=== PATIENT | female | born 1995 | race Caucasian/White ===

== ENCOUNTER 2022-07-23 04:59 | Emergency (ER) | payer OTHER ==
[~2022-07-23] VITALS: Ht 149.9 cm; Wt 56.7 kg
[2022-07-23] MEDS ORDERED: PRENATABS FA T1 EACH PO (05:24)
[2022-07-23] MEDS ORDERED: ONDANSETRON ODT4 MG PO (06:55)
== END 2022-07-23 07:38 | disposition home or self-care (01) ==
LOC: ED 04:59
DX: O21.9 Vomiting of pregnancy, unspecified (principal); Z3A.14 14 weeks gestation of pregnancy
CPT/HCPCS: 36415; 80053; 81003; 83735; 85025; 96374; 99284-25; A9270; J2405; J7030

== ENCOUNTER 2023-01-15 23:15 | Inpatient (IN) | payer BC, OTHER ==
[~2023-01-15] VITALS: Ht 149.9 cm; Wt 75.3 kg
--- NOTE | ~2023-01-15 | OR ---
[facility] [address] [place], [place] [address] Draft DATE OF OPERATION: 01/16/2023 SURGEON: Taz Payton DO PREOPERATIVE DIAGNOSES: 1. Intrauterine at 39 weeks gestation. 2. Failure to descend. 3. Persistent occiput posterior position. 4. Non-reassuring heart tracing. 5. Severe anxiety. POSTOPERATIVE DIAGNOSES: 1. Intrauterine at 39 weeks gestation. 2. Failure to descend. 3. Persistent occiput posterior position. 4. Non-reassuring heart tracing. 5. Severe anxiety. PROCEDURE PERFORMED: Primary low transverse delivery. ANESTHESIA: Epidural converted to general anesthetic with postoperative tap block. ORDER MANAGEMENT SPECIALIST: Waqas Kramer MD. ESTIMATED BLOOD LOSS: 600 mL. DRAINS: Milton to gravity. COMPLICATIONS: None. FINDINGS: Delivery of viable female in the direct OP position with no nuchal cord. Meconium-stained fluid. Apgars 3, 6 and 8. weight 3835 g. Normal uterus, tubes, and ovaries. PATIENT NAME: KAMILAH PAINTING OPERATIVE REPORT DATE OF : [birth year] REPORT #: [id number] PHYSICIAN: TAZ PAYTON (HEMANTH) PCP: NO PRIMARY CARE PHYSICIAN REPORT IS CONFIDENTIAL AND NOT TO BE RELEASED WITHOUT AUTHORIZATION [address] [address] Draft INDICATIONS: Ms. Painting is a very pleasant 27-year-old, G1, P0, with IUP in the 39th week gestation who presented in active labor. Artificial rupture of membranes was performed for meconium-stained fluid and epidural was placed. The patient struggled with pain control with epidural in place throughout her labor. The patient was able to progress to 10 cm with reassuring heart tracing. The patient pushed for nearly 2 hours with no descensus noted and persistent occiput posterior positioning noted. Maternal repositioning and rotational maneuvers were unsuccessful. Fetus then develops sustained tachycardia and mom briefly had an elevated temperature of a 101.1 degrees Fahrenheit. Recommended primary low transverse delivery. Risks, benefits, and alternatives were discussed in detail with the patient and family. The patient understands and wishes to proceed with the procedure. PROCEDURE IN DETAIL: The patient was taken to the operating room where a time-out was performed to confirm correct patient and correct procedure. Epidural was bolused. A Milton catheter was reinserted and significant vulvar edema was noted consistent with prolonged 2nd stage of labor and pushing efforts. Ancef 2 g preoperatively and azithromycin 500 mg were administered. ICPs were on and running. The patient was prepped and draped in the supine position with a bump under the right hip. Epidural was evaluated and noted to be inadequate. Decision was made to proceed with a general anesthetic. Once general anesthesia was established, a Pfannenstiel skin incision was made using a surgical scalpel and carried down to the fascia. The fascia was nicked in the midline and fascial incision was extended bilaterally using curved Carrington scissors. Fascia was grasped with Melissa's, elevated, and the underlying rectus muscles dissected off bluntly and sharply. Rectus was divided in the midline and peritoneum was divided bluntly. Lower uterine segment was identified and hysterotomy was performed using a surgical scalpel. Hysterotomy was extended using blunt dissection and meconium stained fluid was noted. Surgeon's hand was placed in the uterine cavity and vertex was flexed and delivered into the abdomen. The remainder of the was delivered with the assistance of fundal pressure. Direct OP positioning was noted with significant molding and caput. The was initially vigorous and cried and the cord was doubly clamped and cut and the handed to the waiting pediatric team for further care. Cord gases were obtained and noted to be normal at the end of the procedure. Cord blood was obtained for routine analysis. The placenta was expressed, intact with a centrally inserted three-vessel cord. The uterine cavity was cleared of any remaining products of conception or clot. Some oozing was noted from the right uterine vessels. Hysterotomy was then repaired using 0 Monocryl with excellent control of all bleeding. Hysterotomy was closed in two layers, the first being a running locked layer and the second being an imbricating layer in the vertical manner. The pelvis was irrigated and found to be hemostatic. Normal uterus, tubes, and ovaries appreciated. The peritoneum was then PATIENT NAME: KAMILAH PAINTING OPERATIVE REPORT DATE OF : [birth year] REPORT #: [id number] PHYSICIAN: TAZ PAYTON (HEMANTH) DO PCP: NO PRIMARY CARE PHYSICIAN REPORT IS CONFIDENTIAL AND NOT TO BE RELEASED WITHOUT AUTHORIZATION [facility] [address], [place] [address] Draft reapproximated using 2-0 Vicryl in a running nonlocked manner. The rectus was noted to be hemostatic and plicated loosely in the midline using three interrupted sutures of 0 Vicryl. ACell powder was applied to the rectus sheath. The fascia was reapproximated using 0 Vicryl in a running nonlocked manner. Subcu was irrigated and made hemostatic with judicious use of Bovie electrocautery. Subcu was reapproximated using 3-0 Vicryl in a running nonlocked manner. Skin was reapproximated using surgical abigail. The uterus was Crede'd for scant amount of blood. The patient remained in the operative room under general anesthetic for tap blocks and was in the nursery recovering with the assist of the pediatric team. Sponge, needle, instrument counts were correct x2 at the end of the procedure. Dr. Kramer was present and participated in all portions of the procedure. DO EDIE Ramos/MILTONL /[id number] Copies: ~ PATIENT NAME: KAMILAH PAINTING OPERATIVE REPORT DATE OF : [birth year] REPORT #: [id number] PHYSICIAN: TAZ PAYTON) PCP: NO PRIMARY CARE PHYSICIAN REPORT IS CONFIDENTIAL AND NOT TO BE RELEASED WITHOUT AUTHORIZATION
[~2023-01-15 23:15] MED LIST: ONDANSETRON ODT4 MG PO; PRENATABS FA T1 EACH PO
[2023-01-16 02:14] VITALS: BP 127/80
--- NOTE | 2023-01-16 08:23 | PR ---
[facility] [address] [place], [place] [address] Signed Progress Notes IP Datetime Report Generated by CPN: 01/16/2023 08:23 PROGRESS NOTES: [id number] Procedures: Artificial ROM VITAL SIGNS: [id number] Vital Signs: Reviewed; Within Normal Limits EXAM: [id number] Dilatation: 5.0 Effacement: 90 Station: -2 Contractions: q 4 to 7 min MEMBRANES: [id number] Membranes Status: Ruptured Comments: Reviewed FHR tracing with pt and FOB, recommend internal monitors for better assessment of decelerations. Pt declines at this time, agreed if decels become more frequent she will allow internals. She does not seem to have any relief from epidural; still has excellent movement of legs, appears to feel all touch on perineum. Anesthesia consult for possible epidural replacement requested. FETUS A: [id number] FHR Baseline: 150 Variability: Minimal - >Undetectable to <=5bpm Accelerations: 10X10 FHR Category: Category II Presentation: Vertex Comments on Fetus A: previously reassuring and will reposition FETUS B: [id number] Signing Physician: Judith Grier DO Copies: ~ *Electronically Signed* 01/16/23822 JUDITH GRIER DO PATIENT NAME: KAMILAH INTERIANO PROGRESS NOTE DATE OF : [birth year] PHYSICIAN: JUDITH GRIER DO [facility] #: [id number] REPORT IS CONFIDENTIAL AND NOT TO BE RELEASED WITHOUT AUTHORIZATION
--- NOTE | 2023-01-16 10:08 | PR ---
[facility] [address] [place], [place] [address] Signed Progress Notes IP Datetime Report Generated by CPN: 01/16/2023 10:08 PROGRESS NOTES: [id number] Impression: Normal Progression of Labor; Non-reassuring Heart Rate Procedures: Artificial ROM Plan: Continue Present Management Informed Consent Obtain: Vaginal Delivery VITAL SIGNS: [id number] Vital Signs: Reviewed; Within Normal Limits EXAM: [id number] Dilatation: 6.0 Effacement: 90 Station: -2 Contractions: q 4 to 7 min MEMBRANES: [id number] Membranes Status: Ruptured Comments: Pt seen and evaluated. Care assumed from Dr. Grier. Reviewed records and progression of labor. Pt was reevaluated and rebolused by anesthesia and now pain adequately controlled. Pt had raised possibility of by patient request, but at this point would like to continue w/ trial of vaginal delivery. Discussed cervical change, estimated weight, and indications for IUPC if needed. All questions answered. FETUS A: [id number] FHR Baseline: 150 Variability: Minimal - >Undetectable to <=5bpm Accelerations: 10X10 FHR Category: Category II Presentation: Vertex Comments on Fetus A: previously reassuring and will reposition FETUS B: [id number] Signing Physician: Taz Payton DO Copies: ~ *Electronically Signed* 01/16/23 1003 TAZ PAYTON (HEMANTH) DO PATIENT NAME: KAMILAH INTERIANO PROGRESS NOTE DATE OF : [birth year] PHYSICIAN: TAZ PAYTON (JD) DO RPT #: [id number] REPORT IS CONFIDENTIAL AND NOT TO BE RELEASED WITHOUT AUTHORIZATION
--- NOTE | 2023-01-16 14:48 | PR ---
[facility] [address] [place], [place] [address] Signed Progress Notes IP Datetime Report Generated by CPN: 01/16/2023 14:48 PROGRESS NOTES: [id number] Impression: Normal Progression of Labor; Reassuring Heart Rate Procedures: Sterile Vag Exam Plan: Continue Present Management Informed Consent Obtain: Vaginal Delivery Other Informed Consents: Pt declines IUPC / FSE VITAL SIGNS: [id number] Vital Signs: Reviewed; Within Normal Limits EXAM: [id number] Dilatation: 7.5 Effacement: 100 Station: -1 Contractions: q 4 to 7 min MEMBRANES: [id number] Membranes Status: Ruptured Comments: Pt seen and examined. Uncomfortable w/ contractions and requesting evaluation for bolus of epidural. Discussed cervical change and progression of labor. Reviewed FHT. No evidence of intraamniotic infection. Will monitor closely FETUS A: [id number] FHR Baseline: 150 Variability: Minimal - >Undetectable to <=5bpm Accelerations: 10X10 FHR Category: Category II Presentation: Vertex Comments on Fetus A: previously reassuring and will reposition FETUS B: [id number] Signing Physician: Taz Payton DO Copies: ~ *Electronically Signed* 01/16/23 7084 TAZ PAYTON (HEMANTH) DO PATIENT NAME: KAMILAH INTERIANO PROGRESS NOTE DATE OF : [birth year] PHYSICIAN: TAZ PAYTON (JD) DO RPT #: [id number] REPORT IS CONFIDENTIAL AND NOT TO BE RELEASED WITHOUT AUTHORIZATION
--- NOTE | 2023-01-16 16:43 | PR ---
[facility] [address] [place], [place] [address] Signed Progress Notes IP Datetime Report Generated by CPN: 01/16/2023 16:43 PROGRESS NOTES: [id number] Impression: Normal Progression of Labor; Reassuring Heart Rate Procedures: Sterile Vag Exam Plan: Continue Present Management; Anticipate Vaginal Delivery Informed Consent Obtain: Vaginal Delivery Other Informed Consents: Pt declines IUPC / FSE VITAL SIGNS: [id number] Vital Signs: Reviewed; Within Normal Limits EXAM: [id number] Dilatation: 8.0 Effacement: 100 Station: -1 Contractions: q 4 to 7 min MEMBRANES: [id number] Membranes Status: Ruptured Comments: Pt seen and examined. Doing well. Comfortable w/ contractions. Anterior lip but somewhat swollen. Easily reducible. Recommend pushing while cervix reducible. Pt understands and agrees. Discussed minimal variability and accel w/ scalp stim. Will monitor FETUS A: [id number] FHR Baseline: 150 Variability: Minimal - >Undetectable to <=5bpm Accelerations: 10X10 FHR Category: Category II Presentation: Vertex Comments on Fetus A: previously reassuring and will reposition FETUS B: [id number] Signing Physician: Taz Payton DO Copies: ~ *Electronically Signed* 01/16/23 1573 TAZ PAYTON (HEMANTH) DO PATIENT NAME: KAMILAH INTERIANO PROGRESS NOTE DATE OF : [birth year] PHYSICIAN: TAZ PAYTON (JD) DO RPT #: [id number] REPORT IS CONFIDENTIAL AND NOT TO BE RELEASED WITHOUT AUTHORIZATION
--- NOTE | 2023-01-16 18:20 | PR ---
[facility] [address] [place], [place] [address] Signed Progress Notes IP Datetime Report Generated by CPN: 01/16/2023 18:20 PROGRESS NOTES: [id number] Impression: Normal Progression of Labor; Reassuring Heart Rate Procedures: Sterile Vag Exam Plan: Continue Present Management; Anticipate Vaginal Delivery Informed Consent Obtain: Vaginal Delivery Other Informed Consents: Pt declines IUPC / FSE VITAL SIGNS: [id number] Vital Signs: Reviewed; Within Normal Limits EXAM: [id number] Dilatation: 8.0 Effacement: 100 Station: -1 Contractions: q 4 to 7 min MEMBRANES: [id number] Membranes Status: Ruptured Comments: Physician at bedside pushing with patient since _1635. Significant caput noted but little descent to vertex. Persistant OP position noted despite maternal repositioning. Now tachycardia. Will discuss C/S vs continued trial of w/ pt FETUS A: [id number] FHR Baseline: 150 Variability: Minimal - >Undetectable to <=5bpm Accelerations: 10X10 FHR Category: Category II Presentation: Vertex Comments on Fetus A: previously reassuring and will reposition FETUS B: [id number] Signing Physician: Taz Payton DO Copies: ~ *Electronically Signed* 01/16/23 9419 TAZ PAYTON (HEMANTH) DO PATIENT NAME: KAMILAH INTERIANO PROGRESS NOTE DATE OF : [birth year] PHYSICIAN: TAZ PAYTON (JD) DO RPT #: [id number] REPORT IS CONFIDENTIAL AND NOT TO BE RELEASED WITHOUT AUTHORIZATION
--- NOTE | 2023-01-16 18:30 | PR ---
[facility] [address] [place], [place] [address] Signed Progress Notes IP Datetime Report Generated by VERNON: 01/16/2023 18:30 PROGRESS NOTES: [id number] Impression: Arrest of Dilatation/Descent; Non-reassuring Heart Rate Procedures: Sterile Vag Exam Plan: Antibiotic Therapy; Deliver- Section Informed Consent Obtain: Section Delivery Other Informed Consents: Pt declines IUPC / FSE VITAL SIGNS: [id number] Vital Signs: Reviewed; Within Normal Limits EXAM: [id number] Dilatation: 8.0 Effacement: 100 Station: -1 Contractions: q 4 to 7 min MEMBRANES: [id number] Membranes Status: Ruptured Comments: Pt examined and discussed clinical situation w/ tachycardia, OP position, and failure of descent. Recommended primary LTCS. Pt requested operative vaginal delivery and discussed that this is contraindicated due to high station. We reviewed including risks/benefits and implications on future pregnancies. Pt understands and agrees with decision to proceed with C/S. Consents signed. Ancef 2g IV and Azithromycin 500mg IV ordered. Terbutaline administered. OR crew notified and en route. Pediatrics notified and will attend delivery. All questions answered. FETUS A: [id number] FHR Baseline: 150 Variability: Minimal - >Undetectable to <=5bpm Accelerations: 10X10 FHR Category: Category II Presentation: Vertex Comments on Fetus A: previously reassuring and will reposition FETUS B: [id number] Signing Physician: Taz Payton DO Copies: ~ *Electronically Signed* 01/16/23 1830 TAZ PAYTON) DO PATIENT NAME: PAL INTERIANONE PROGRESS NOTE DATE OF : [birth year] PHYSICIAN: TAZ PAYTON (JD) DO RPT #: [id number] REPORT IS CONFIDENTIAL AND NOT TO BE RELEASED WITHOUT AUTHORIZATION
--- NOTE | 2023-01-16 20:15 | NUR ---
01/16/232014 Roberta Lindsey 2006: PT ARRIVES TO PACU VIA BED FROM [facility] OR WITH EYES CLOSED ON 15L VIA NON-REBREATHER MASK WITH OPA IN PLACE. PT DOES NOT AROUSE TO FUNDAL MASSAGE. Nannette VOGEL RN AND Deven FROST CRNA AT BEDSIDE.
[2023-01-16 20:48] VITALS: BP 127/89
--- NOTE | 2023-01-17 07:56 | PR ---
[facility] [address] [place], [place] [address] Signed PP Progress Notes Datetime Report Generated by VERNON: 01/17/2023 07:56 SUBJECTIVE: [id number] Pain: Within Normal Limits Nausea/Vomiting: Denies Flatus: Yes Bowel Movement: No Vital Signs: [id number] Vital Signs: Reviewed Cardiovascular: Normal Respiratory: Normal Abdomen/Uterus: Normal Lochia: Normal Vulva/Perineum: Normal Breasts: Normal Extremities: Normal Incision: Normal Exam Comments: NAD, sitting up in bed RRR No dyspnea/ retractions Abd SNTND, FFBU Incision: dressing in place, clean/ dry, no strikethrough Ext: 2+ BLLE edema, neg Christian's BL IMPRESSION/PLAN/PROCEDURES: [id number] Impression: Normal Progression Plan: Continue Present Management; Discharge Procedures: None Progress Notes: POD#1 s/p PLTCS for failure to descend, occiput posterior positioning -progressing well postop: teixeira still in place but transferred to wheelchair to see baby prior to baby transfer to [facility]. Lochia light, pain well-controlled with toradol -O+/ RI, hgb 10.7 this am from 11.1 on admission -mother requesting DC to be with baby at [facility] RACHELE Plan: ambulation trial, once able to ambulate to bathroom remove teixeira and await spontaneous void. Reviewed risks of early discharge and importance of presenting to ER immediately if bleeding, headaches, vision changes, fevers, chills. Anticipate Mirena IUD for contraception, support at [facility]. Signing Physician: Judith Grier DO *Electronically Signed* 01/17/23 0756 JUDITH GRIER DO PATIENT NAME: PAL INTERIANONE PROGRESS NOTE DATE OF : [birth year] PHYSICIAN: JUDITH GRIER DO RPT #: [id number] REPORT IS CONFIDENTIAL AND NOT TO BE RELEASED WITHOUT AUTHORIZATION [address] [address] Signed Copies: ~ *Electronically Signed* 01/17/23 0756 JUDITH GRIER DO PATIENT NAME: KAMILAH INTERIANO PROGRESS NOTE DATE OF : [birth year] PHYSICIAN: JUDITH GRIER DO RPT #: [id number] REPORT IS CONFIDENTIAL AND NOT TO BE RELEASED WITHOUT AUTHORIZATION
--- NOTE | 2023-01-17 07:57 | PR ---
[facility] [address] [place], [place] [address] Signed PP Progress Notes Datetime Report Generated by VERNON: 01/17/2023 07:57 SUBJECTIVE: [id number] Pain: Within Normal Limits Nausea/Vomiting: Denies Flatus: Yes Bowel Movement: No Vital Signs: [id number] Vital Signs: Reviewed Cardiovascular: Normal Respiratory: Normal Abdomen/Uterus: Normal Lochia: Normal Vulva/Perineum: Normal Breasts: Normal Extremities: Normal Incision: Normal Exam Comments: NAD, sitting up in bed RRR No dyspnea/ retractions Abd SNTND, FFBU Incision: dressing in place, clean/ dry, no strikethrough Ext: 2+ BLLE edema, neg Christian's BL IMPRESSION/PLAN/PROCEDURES: [id number] Impression: Normal Progression Plan: Continue Present Management; Discharge Procedures: None Progress Notes: POD#1 s/p PLTCS for failure to descend, occiput posterior positioning -progressing well postop: teixeira still in place but transferred to wheelchair to see baby prior to baby transfer to [facility]. Lochia light, pain well-controlled with toradol -O+/ RI, hgb 10.7 this am from 11.1 on admission -mother requesting DC to be with baby at [facility] RACHELE Plan: ambulation trial, once able to ambulate to bathroom remove teixeira and await spontaneous void. Reviewed risks of early discharge and importance of presenting to ER immediately if bleeding, headaches, vision changes, fevers, chills. Anticipate Mirena IUD for contraception, support at [facility]. Signing Physician: Judith Grier DO *Electronically Signed* 01/17/23 075 JUDITH GRIER DO PATIENT NAME: PAL INTERIANONE PROGRESS NOTE DATE OF : [birth year] PHYSICIAN: JUDITH GRIER DO RPT #: [id number] REPORT IS CONFIDENTIAL AND NOT TO BE RELEASED WITHOUT AUTHORIZATION [address] [address] Signed Copies: ~ *Electronically Signed* 01/17/23 075 JUDITH GRIER DO PATIENT NAME: KAMILAH INTERIANO PROGRESS NOTE DATE OF : [birth year] PHYSICIAN: JUDITH GRIER DO RPT #: [id number] REPORT IS CONFIDENTIAL AND NOT TO BE RELEASED WITHOUT AUTHORIZATION
== END 2023-01-17 14:20 | disposition home or self-care (01) | DRG 787 ==
LOC: FBCO 23:15 → FBC 01-16 01:21
PROVIDERS: Obstetrics & Gynecology; ADMIT Obstetrics & Gynecology; ATTEND Obstetrics & Gynecology
PROC: 10D00Z1 Extraction of Products of Conception, Low, Open Approach (ICD-10-PCS; principal; 2023-01-16 18:52)
DX: O76 Abnormality in fetal heart rate and rhythm complicating labor and delivery (principal); O99.324 Drug use complicating childbirth; O99.344 Other mental disorders complicating childbirth; F41.9 Anxiety disorder, unspecified; O32.4XX0 Maternal care for high head at term, not applicable or unspecified; O77.0 Labor and delivery complicated by meconium in amniotic fluid; F12.10 Cannabis abuse, uncomplicated; Z3A.39 39 weeks gestation of pregnancy; Z37.0 Single live birth; Z67.40 Type O blood, Rh positive
CPT/HCPCS: 01960; 36415; 59025; 76942; 82803; 85027; 86850; 86900; 86901; A9270; G0463; J0330; J0456; J1100; J1650; J1885; J2250; J2274; J2405; J2590; J2704; J2795; J3010; J3105; J7121